=== PATIENT | female | born 1970 | race African-American/Black ===

== ENCOUNTER 2017-01-13 06:14 | Observation (INO) | payer BC ==
[~2017-01-13] VITALS: Ht 175.3 cm; Wt 101.2 kg
[2017-01-13] VITALS (8 sets, daily range): BP systolic 130–150; BP diastolic 74–89
[~2017-01-13 06:14] MED LIST: CEFAZOLIN 2GM PREMIX 50 ML IV ONE
[2017-01-13] MEDS ORDERED: FURO-69 PO (06:25)
[2017-01-13] MEDS ORDERED: HYDROMORPHONE 2 MG/ML VIAL. IV PRN (07:00)
[2017-01-13] MEDS ORDERED: IV RINGERS,LACTATED 1000ML 1,000 ML IV SCH (07:00)
[2017-01-13] MEDS ORDERED: ONDANSETRON PF 4 MG/2 ML VIAL. IV PRN ×2 (07:00→10:30)
[2017-01-13] MEDS ORDERED: PROCHLORPERAZINE 10 MG/2 ML VIAL. IV PRN ×2 (07:00→10:30)
[2017-01-13] MEDS ORDERED: FENTANYL PF 100 MCG/2 ML VIAL. IV PRN (07:00)
[2017-01-13] MEDS ORDERED: LIDOCAINE 1% 1 ML SYRINGE. ID PRN (07:00)
[2017-01-13] MEDS ORDERED: MORPHINE SULFATE 2 MG/ML DISP.SYRIN. IV PRN (07:00)
[2017-01-13] MEDS ORDERED: LIDOCAINE 1%/EPI 1:100,000 20 ML VIAL. ONE (07:06)
[2017-01-13] MEDS ORDERED: SURGICEL HEMOSTAT 4X8 EACH. ONE (07:06)
[2017-01-13] MEDS ORDERED: BUPIVACAINE-EPI 0.25%-1:200000 MPF 30 ML VIAL. ONE (07:07)
[2017-01-13] MEDS ORDERED: ESTROGENS, CONJ VAGINAL CREAM 30GM TUBE. ONE (07:07)
[2017-01-13] MEDS ORDERED: PROPOFOL 20 ML IV ONE (07:18)
[2017-01-13] MEDS ORDERED: MIDAZOLAM HCL 2 MG/2 ML VIAL. ONE (07:18)
[2017-01-13] MEDS ORDERED: SEVOFLURANE 61 TO 120 MINUTES. IH ONE (07:18)
[2017-01-13] MEDS ORDERED: DEXAMETHASONE SOD PHOS 20 MG/5 ML VIAL. ONE (07:18)
[2017-01-13] MEDS ORDERED: FAMOTIDINE 20 MG/2 ML VIAL ONE (07:18)
[2017-01-13] MEDS ORDERED: FENTANYL PF 250 MCG/5 ML VIAL. ONE (07:18)
[2017-01-13] MEDS ORDERED: LIDOCAINE 2% PF Vial for OR 5 ML VIAL. ONE (07:18)
[2017-01-13] MEDS ORDERED: ONDANSETRON PF 4 MG/2 ML VIAL. ONE (07:18)
[2017-01-13] MEDS ORDERED: ROCURONIUM 50 MG/5 ML VIAL. ONE (07:19)
[2017-01-13 07:43] LABS: BASO % 1 % (0-3); EOS % 2 % (0-3); HEMATOCRIT 33.2 % (36.0-47.0); HEMOGLOBIN 10.2 g/dL (12.0-15.5); LYMPH # 1.5 x10^3/uL (1.0-4.8); LYMPH % 25 % (24-48); MEAN CORPUSCULAR HEMOGLOBIN 22 pg (25-35); MEAN CORPUSCULAR HGB CONC 31 g/dL (31-37); MEAN CORPUSCULAR VOLUME 72 fL (79-100); MONO % 10 % (0-9); NEG OBC UR NEG; NEUT % 62 % (31-73); PLATELET COUNT 403 x10^3/uL (140-400); POS OBC UR POS
[2017-01-13 09:39] LABS: PLT ESTIMATE ADEQUATE (ADEQUATE)
[2017-01-13 09:40] LABS: ANISOCYTOSIS SLIGHT; HYPOCHROMIA SLIGHT; MICROCYTOSIS SLIGHT
[2017-01-13] MEDS ORDERED: FENTANYL PF 100 MCG/2 ML VIAL. ONE (09:44)
[2017-01-13] MEDS ORDERED: GLYCOPYRROLATE 1 MG/5 ML VIAL. ONE (10:09)
[2017-01-13] MEDS ORDERED: NEOSTIGMINE METHYLSULFATE 5 MG/5 ML SYRINGE. ONE (10:11)
--- NOTE | 2017-01-13 10:25 | PDOC ---
BRIEF OPERATIVE NOTE Pre-Op Diagnosis 1. AUB 2. Fibroids Post-Op Diagnosis SAme Procedure Performed [facility] Surgeon Dr. Abrams Anesthesia Type: General Blood Loss 100 ml Specimens Obtained uterus and cervix Findings enlarged, fibroid uterus Complications none Additional Remarks pt. CLIFTON Brown Jr, MD Jan 13, 2017 10:25
[2017-01-13] MEDS ORDERED: CALCIUM CARBONATE 500 MG TAB.CHEW PO PRN (10:30)
[2017-01-13] MEDS ORDERED: ZOLPIDEM 5 MG TABLET. PO PRN (10:30)
[2017-01-13] MEDS ORDERED: DIPHENHYDRAMINE 50 MG/ML VIAL IV PRN (10:30)
[2017-01-13] MEDS ORDERED: SIMETHICONE 80 MG TAB.CHEW PO PRN (10:30)
[2017-01-13] MEDS ORDERED: DEXTROSE 50% 25 GM / 50ML DISP.SYRIN. IV PRN (10:30)
[2017-01-13] MEDS ORDERED: 0.9 % SODIUM CHLORIDE 10 ML DISP.SYRIN. IV PRN (10:30)
[2017-01-13] MEDS ORDERED: DIPHENHYDRAMINE HCL 25 MG CAPSULE PO PRN (10:30)
[2017-01-13] MEDS: FENTANYL PF 100 MCG/2 ML VIAL. IV PRN ×2 (11:00→11:20)
[2017-01-13] MEDS: KETOROLAC TROMETHAMINE 30 MG/ML SYRINGE. IV PRN ×2 (12:39→19:48)
--- NOTE | 2017-01-13 13:32 | OP ---
DATE OF SURGERY: 01/13/2017 PREOPERATIVE DIAGNOSES: 1. Abnormal uterine bleeding. 2. Fibroids. POSTOPERATIVE DIAGNOSES: 1. Abnormal uterine bleeding. 2. Fibroids. PROCEDURE: LAVH. SURGEON: Clifton Abrams MD ANESTHESIA: GETA. ESTIMATED BLOOD LOSS: 100 mL. COMPLICATIONS: None. FINDINGS: Enlarged uterus, normal fallopian tubes and ovaries bilaterally. SUMMARY: A 46-year-old, with long history of abnormal uterine bleeding and also diagnosed with fibroids, the pelvic sonogram. The patient was counseled on risks, benefits and expectations of LAVH and voiced a clear understanding to proceed. DESCRIPTION OF PROCEDURE: The patient was taken to surgery suite and placed in dorsal lithotomy position. She was prepped with Betadine for vaginal prep and ChloraPrep for abdominal prep. After adequate anesthesia, bivalve speculum was placed vaginally. The anterior lip of cervix grasped with a single tooth tenaculum. The Valtchev uterine manipulator was then placed. The bivalve speculum was removed. Attention was now placed on abdomen. Small transverse skin incision was made just above the umbilicus with scalpel. Veress needle was then placed through the supraumbilical incision site. The abdomen was allowed to insufflate up to 1-1/2 liters CO2 gas. The Veress needle was then removed. A 5 mm trocar was placed. The scope was then positioned. The uterus was very enlarged with multiple fibroids, fallopian tubes and ovaries appeared normal bilaterally. Two additional incisions were made in the left lower quadrant, at which 5 mm trocars were placed with the aid of graspers as well as a single tooth tenaculum. The uterus was manipulated. The EnSeal device was utilized to dissect the left round ligament and then, the left uteroovarian pedicle was left broad ligament. Same process took place at the right adnexa. Pedicles were hemostatic. We then proceeded vaginally. Weighted speculum and curved Jacinto placed vaginally. The single tooth tenaculum and the Valtchev uterine manipulator were removed. Han clamps were placed on the anterior and posterior lip of the cervix. 1% lidocaine with epinephrine was injected circumferentially. Bovie cautery was utilized to circumscribe the cervix. The vaginal mucosa was then dissected away from the lower uterine segment using blunt dissection, a moist Ray-Phoenix. The parametrial tissue was clamped bilaterally with curved Linda clamps, cut and suture ligated with 2-0 Vicryl suture. Two additional pedicles were taken just adjacent to the cervix, which are clamped, cut, and suture ligated. Posterior cul-de-sac was entered sharply with curved Alves scissors. The long weighted speculum was then placed. Uterosacral ligaments were clamped bilaterally, cut, and suture ligated. Cardinal ligaments were then clamped bilaterally, cut, and suture ligated. The cervix was then bivalved with scalpel. Multiple fibroids were removed using the coring method until the remainder of the uterus was removed. The pedicles were all hemostatic. A modified Quezada's culdoplasty was performed incorporating the uterosacral ligaments bilaterally. The remainder of the vaginal cuff was reapproximated using 2-0 Vicryl suture in a [id number] manner. Moist vaginal packing was placed. Attention was once again placed on abdomen. Abdomen was allowed to insufflate up to 1-1/2 liters CO2 gas. The scope was positioned. The posterior cul-de-sac was visualized and was hemostatic. All pedicles were hemostatic as well. This was verified with suction irrigation. Small amount of normal saline was left in the posterior cul-de-sac. The trocars were then removed under direct visualization. The abdomen was allowed to deflate as much as possible along with mechanical manipulation. The three skin incisions were reapproximated using 4-0 Vicryl suture in a subcuticular manner. 0.25% Marcaine with epinephrine was injected at each incision site. The patient tolerated the procedure well and was taken to recovery room in stable condition. Sponge and needle count correct x 3. CLIFTON ABRAMS MD DR: GUILLERMO/cyn JOB#: [id number] / [id number]
[2017-01-13] MEDS: GABAPENTIN 300 MG CAPSULE. PO SCH ×2 (14:00→21:56)
[2017-01-13] MEDS: OXYCODONE/APAP 5/325 TABLET. PO PRN ×2 (15:17→21:57)
[2017-01-14 04:58] LABS: BASO % 0 % (0-3); EOS % 0 % (0-3); HEMATOCRIT 30.2 % (36.0-47.0); HEMOGLOBIN 9.1 g/dL (12.0-15.5); LYMPH % 16 % (24-48); MEAN CORPUSCULAR HEMOGLOBIN 22 pg (25-35); MEAN CORPUSCULAR HGB CONC 30 g/dL (31-37); MEAN CORPUSCULAR VOLUME 72 fL (79-100); MONO % 9 % (0-9); NEUT % 74 % (31-73); PLATELET COUNT 382 x10^3/uL (140-400); RED BLOOD COUNT 4.21 x10^6/uL (3.50-5.40); RED CELL DISTRIBUTION WIDTH 18.8 % (11.5-14.5); WHITE BLOOD COUNT 12.1 x10^3/uL (4.0-11.0)
[2017-01-14] MEDS: GABAPENTIN 300 MG CAPSULE. PO SCH (05:46)
[2017-01-14] MEDS: OXYCODONE/APAP 5/325 TABLET. PO PRN ×2 (05:47→11:24)
[2017-01-14 06:38] VITALS: BP 113/78
--- NOTE | 2017-01-14 08:02 | PDOC ---
SURGICAL PROGRESS NOTE Subjective Pt. feeling well. Pain controlled. Pt. tolerating regular diet. Encourage ambulation. Vital Signs Vital Signs Date Time Temp Pulse Resp B/P Pulse Ox O2 Delivery O2 Flow Rate FiO2 01/14/17 06:38 98.6 76 18 113/78 98.6 01/13/17 14:44 98.0 01/13/17 13:00 97 Room Air I&O Intake and Output 01/14/17 07:00 Intake Total 2570 ml Output Total 3785 ml Balance -1215 ml Intake Oral 1020 ml IV Total 1550 ml Output Urine Total 3685 ml Estimated Blood Loss 100 ml PATIENT HAS A POOL: No General: Alert, Oriented X3, Cooperative HEENT: Atraumatic Lungs: Clear to auscultation Heart: Regular rate Abdomen: Normal bowel sounds, Soft, No masses Extremities: No edema Neuro: Normal gait Psych/Mental Status: Mental status NL Labs Laboratory Tests Test 01/13/17 06:50 01/14/17 04:25 White Blood Count 6.0x10^3/uL (4.0-11.0) 12.1x10^3/uL (4.0-11.0) Red Blood Count 4.60x10^6/uL (3.50-5.40) 4.21x10^6/uL (3.50-5.40) Hemoglobin 10.2g/dL (12.0-15.5) 9.1g/dL (12.0-15.5) Hematocrit 33.2% (36.0-47.0) 30.2% (36.0-47.0) Mean Corpuscular Volume 72fL (79-100) 72fL (79-100) Mean Corpuscular Hemoglobin 22pg (25-35) 22pg (25-35) Mean Corpuscular Hemoglobin Concent 31g/dL (31-37) 30g/dL (31-37) Red Cell Distribution Width 19.0% (11.5-14.5) 18.8% (11.5-14.5) Platelet Count 403x10^3/uL (140-400) 382x10^3/uL (140-400) Neutrophils (%) (Auto) 62% (31-73) 74% (31-73) Lymphocytes (%) (Auto) 25% (24-48) 16% (24-48) Monocytes (%) (Auto) 10% (0-9) 9% (0-9) Eosinophils (%) (Auto) 2% (0-3) 0% (0-3) Basophils (%) (Auto) 1% (0-3) 0% (0-3) Neutrophils # (Auto) 3.7x10^3uL (1.8-7.7) 9.0x10^3uL (1.8-7.7) Lymphocytes # (Auto) 1.5x10^3/uL (1.0-4.8) 2.0x10^3/uL (1.0-4.8) Monocytes # (Auto) 0.6x10^3/uL (0.0-1.1) 1.1x10^3/uL (0.0-1.1) Eosinophils # (Auto) 0.1x10^3/uL (0.0-0.7) 0.0x10^3/uL (0.0-0.7) Basophils # (Auto) 0.0x10^3/uL (0.0-0.2) 0.0x10^3/uL (0.0-0.2) Platelet Estimate Adequate (ADEQUATE) Hypochromasia Slight Anisocytosis Slight Microcytosis Slight Urine Test Negative (NEG) Laboratory Tests Test 01/14/17 04:25 White Blood Count 12.1x10^3/uL (4.0-11.0) Red Blood Count 4.21x10^6/uL (3.50-5.40) Hemoglobin 9.1g/dL (12.0-15.5) Hematocrit 30.2% (36.0-47.0) Mean Corpuscular Volume 72fL (79-100) Mean Corpuscular Hemoglobin 22pg (25-35) Mean Corpuscular Hemoglobin Concent 30g/dL (31-37) Red Cell Distribution Width 18.8% (11.5-14.5) Platelet Count 382x10^3/uL (140-400) Neutrophils (%) (Auto) 74% (31-73) Lymphocytes (%) (Auto) 16% (24-48) Monocytes (%) (Auto) 9% (0-9) Eosinophils (%) (Auto) 0% (0-3) Basophils (%) (Auto) 0% (0-3) Neutrophils # (Auto) 9.0x10^3uL (1.8-7.7) Lymphocytes # (Auto) 2.0x10^3/uL (1.0-4.8) Monocytes # (Auto) 1.1x10^3/uL (0.0-1.1) Eosinophils # (Auto) 0.0x10^3/uL (0.0-0.7) Basophils # (Auto) 0.0x10^3/uL (0.0-0.2) Problem List Problems Medical Problems: (1) Abnormal uterine bleeding (AUB) Status: Acute (2) Fibroid uterus Status: Acute Assessment/Plan A: POD#1 s/p LAV P: D/c home. Problems: CLIFTON ADAME Jr, MD Jan 14, 2017 08:02
--- NOTE | 2017-01-14 08:03 | DISCH ---
DISCHARGE INSTRUCTIONS Condition on Discharge Condition on Discharge: Stable Activity After Discharge Activity Instructions for Disc: Activity as tolerated Lifting Instructions after Dis: No heavy lifting Driving Instructions after Dis: Do not drive today Diet after Discharge Diet after Discharge: Regular Contacting the DRKeenan after DC Call your doctor for: Concerns you may have Follow-Up Follow up with: Dr. Abrams in 2 weeks. CLIFTON ABRAMS Jr, MD Jan 14, 2017 08:03
[2017-01-14] MEDS ORDERED: DOCU-27 PO (08:04)
[2017-01-14] MEDS ORDERED: IBUP-1060 PO (08:04)
[2017-01-14] MEDS ORDERED: OXYC-323 PO (08:04)
[2017-01-14 10:45] VITALS: BP 123/79
--- NOTE | 2017-01-18 07:59 | PATHOLOGY ---
PATHOLOGY REPORT * * * * * * * * FINAL DIAGNOSIS: Uterine corpus with attached fallopian tube and separate detached uterine cervix, laparoscopic-assisted vaginal hysterectomy: - Leiomyomas, uterine corpus, subserosal/intramural/submucosal, multiple (uterine weight 739 grams). - Focal mild chronic cervicitis with squamous metaplasia. - Disordered proliferative endometrium. - Paratubal cysts, side indeterminate. COMMENT: There is no evidence of malignancy. (JPM:mgr; d/t: 01/17/17) REPORT ELECTRONICALLY SIGNED BY: Srinivasa Montana M.D. DATE/TIME: 01/18/2017 07:58 * * * * * * * * GROSS PATHOLOGY: The specimen is received in formalin labeled "Mariella Itzel, uterus, cervix". Received is a severely mangled/torn uterine corpus weighing 697 grams and measuring 22.5 x 17.2 x 8.6 cm in aggregate dimensions, separately submitted cervical stump weighing 42 grams, and a single attached fallopian tube weighing 3 grams. The uterine serosa is light skelton and glistening in appearance. The endometrium is light skelton and slightly granular in appearance measuring < 0.1 cm in thickness. The myometrium is light skelton and trabeculated in appearance displaying multiple intramural, subserosal, and submucosal fibroids ranging in size from 0.5 to 7.2 cm. Sectioning through the fibroids reveals no gross evidence of degeneration. The cervical stump is previously bisected measuring 7.1 x 3.5 x 3.1 cm in greatest dimensions. The 0.7 cervical os is surrounded by pale skelton, slightly disrupted ectocervical mucosa. The cervical stump cannot be oriented and one half of the paracervical margin is inked black. The endocervical canal is pale skelton in appearance measuring 3.6 cm in length. The attached fimbriated fallopian tube measures 2.5 cm in length by 0.6 cm in diameter with attached paratubal cysts measuring 1.0 and 1.5 cm filled with clear fluid. Sectioning reveals a patent lumen and fallopian tube appears otherwise grossly unremarkable. The specimen is submitted representatively as follows: A1-A2 cervix and opposite cervix A3-A4 automobile rental representative sections of endomyometrium A5-A6 automobile rental representative sections of fibroids A7 represent sections of fallopian tube (CAA; 01/14/2017) INITIAL CPT CODE(S): A; 41322 Professional services performed [place] [facility] [place] [address] Technical services performed by [facility] at [address] [place] [address], [address], [place] [address]. SPECIMEN(S) RECEIVED: A.Uterus, cervix CLINICAL HISTORY: Abnormal uterine bleeding and fibroids PATIENT: MARIELLA DERAS /AGE: 504/11/1970 (Age: 46) PATIENT #: [id number] ALT CASE #: SPECIMEN COLLECTION DATE: 01/13/2017 SPECIMEN RECEIVED DATE: 01/13/2017 [facility] - [id number] [place] [address] - PHONE: [phone] * * * END OF REPORT * * *
== END 2017-01-14 14:37 | disposition home or self-care (01) ==
LOC: SURG 06:14 → 3 NORTH 10:25
PROVIDERS: ADMIT Obstetrics & Gynecology; ATTEND Obstetrics & Gynecology
DX: N93.9 Abnormal uterine and vaginal bleeding, unspecified (principal); D25.9 Leiomyoma of uterus, unspecified
CPT/HCPCS: 36415; 58553; 81025; 85007; 85027; 86850; 86900; 86901; 96374; 96375; 96376; A4215; G0378; G0379; J0690; J1100; J1170; J1885; J2250; J2405; J2704; J2710; J3010; J3490; J7030; J7120; S0028

== ENCOUNTER → 2021-11-11 | Outpatient (CLI) | payer BC ==
[~2021-11-11] MED LIST changes: -CEFAZOLIN 2GM PREMIX 50 ML IV ONE; +DOCU-109 PO; +FURO-69 PO; +IBUP-1060 PO; +OXYC1TAB15 PO
== END ==
LOC: LAB 10:30
PROVIDERS: ATTEND Surgery
DX: Z01.812 Encounter for preprocedural laboratory examination (principal); Z20.822 Contact with and (suspected) exposure to COVID-19
CPT/HCPCS: U0003; U0005

== ENCOUNTER → 2021-11-13 | Day surgery (SDC) | payer BC ==
[~2021-11-13] VITALS: Ht 165.1 cm; Wt 119.0 kg
[~2021-11-13] MED LIST changes: +HYDROmorphone 2 MG/ML VIAL IVP PRN; +IV RINGERS,LACTATED 1000ML 1,000 ML IV SCH; +LIDOCAINE 2% PF 5 ML VIAL. ONE; +MORPHINE SULFATE 2 MG/ML INJ. IVP PRN; +PROCHLORPERAZINE 10 MG/2 ML VIAL. IVP PRN; +PROPOFOL 10 MG/ML (20ML) VIAL. IV ONE; +fentaNYL PF VIAL 100 MCG/2 ML VIAL IVP PRN
[2021-11-13 11:58] VITALS: BP 144/75
[2021-11-13 12:45] VITALS: BP 124/70
== END | disposition home or self-care (01) ==
LOC: ENDOS 11:38
PROVIDERS: ATTEND Surgery
DX: Z12.11 Encounter for screening for malignant neoplasm of colon (principal); K63.89 Other specified diseases of intestine; I10 Essential (primary) hypertension; E78.00 Pure hypercholesterolemia, unspecified; E66.9 Obesity, unspecified; F17.210 Nicotine dependence, cigarettes, uncomplicated; Z98.51 Tubal ligation status; Z90.710 Acquired absence of both cervix and uterus; Z98.890 Other specified postprocedural states; Z79.899 Other long term (current) drug therapy; Z88.2 Allergy status to sulfonamides; Z88.8 Allergy status to other drugs, medicaments and biological substances
CPT/HCPCS: 45378; J2704